=== PATIENT | female | born 1980 ===

== ENCOUNTER 2018-07-30 13:53 | Emergency (ER) | payer BC ==
[2018-07-30] MEDS ORDERED: Metoprolol Tartrate 25 MG Tab PO ONE (14:10)
--- NOTE | 2018-07-30 14:12 | EDM.PDOC ---
ED HPI GENERAL MEDICAL PROBLEM - General Chief Complaint: Cardiovascular Problem Stated Complaint: HIGH BLOOD PRESSURE Time Seen by Provider: 07/30/18 14:02 - History of Present Illness INITIAL COMMENTS - FREE TEXT/NARRATIVE: HISTORY AND PHYSICAL: History of present illness: Patient 38-year-old white female sensory concern of elevated blood pressure he states she's had some dizziness off and on she states is been a problem for some time and that down her maximum lisinopril and has been compliant she does have an appointment on Wednesday is no chest pain shortness of breath or other concern. Blood pressure on arrival here is 191/100 Review of systems: As per history of present illness and below otherwise all systems reviewed and negative. Past medical history: As per history of present illness and as reviewed below otherwise noncontributory. Surgical history: As per history of present illness and as reviewed below otherwise noncontributory. Social history: No reported history of drug or alcohol abuse. Family history: As per history of present illness and as reviewed below otherwise noncontributory. Physical exam: HEENT: Atraumatic, normocephalic, pupils reactive, negative for conjunctival pallor or scleral icterus, mucous membranes moist, throat clear, neck supple, nontender, trachea midline. Lungs: Clear to auscultation, breath sounds equal bilaterally, chest nontender. Heart: S1S2, regular, negative for clicks, rubs, or JVD. Abdomen: Soft, nondistended, nontender. Negative for masses or hepatosplenomegaly. Negative for costovertebral tenderness. Pelvis: Stable nontender. Genitourinary: Deferred. Rectal: Deferred. Extremities: Atraumatic, negative for cords or calf pain. Neurovascular unremarkable. Neuro: Awake, alert, oriented. Cranial nerves II through XII unremarkable. Cerebellum unremarkable. Motor and sensory unremarkable throughout. Exam nonfocal. Diagnostics: CBC CMP chest x-ray EKG Therapeutics: Metoprolol 25 mg by mouth Impression: #1 hypertension #2 medical screening exam Definitive disposition and diagnosis as appropriate pending reevaluation and review of above. - Related Data Allergies Allergy/AdvReac Type Severity Reaction Status Date / Time oxycodone [From Percocet] Allergy Hives Verified 07/30/18 14:06 Home Meds: Home Meds Lisinopril 40 mg PO DAILY 07/30/18 [History] Sertraline HCl 50 mg PO DAILY 07/30/18 [History] ED ROS GENERAL - Review of Systems Review Of Systems: ROS reveals no pertinent complaints other than HPI. ED EXAM, GENERAL - Physical Exam Exam: See Below (See dictation) Course - Vital Signs Last Recorded V/S: Last Vital Signs Temp 36.7 C 07/30/18 14:04 Pulse 76 07/30/18 14:14 Resp 18 07/30/18 14:04 BP 199/109 H 07/30/18 14:14 Pulse Ox 99 07/30/18 14:04 - Orders/Labs/Meds Orders: Active Orders 24 hr Category Date Time Status EKG Documentation Completion [RC] STAT Care 07/30/18 14:07 Active Labs: Laboratory Tests 07/30/18 07/30/18 Range/Units 14:20 14:20 WBC 10.67 (4.0-11.0) K/uL RBC 4.59 (4.30-5.90) M/uL Hgb 11.3 L (12.0-16.0) g/dL Hct 35.7 L (36.0-46.0) % MCV 77.8 L (80.0-98.0) fL MCH 24.6 L (27.0-32.0) pg MCHC 31.7 (31.0-37.0) g/dL RDW Std Deviation 45.6 (28.0-62.0) fl RDW Coeff of Mela 16 H (11.0-15.0) % Plt Count 337 (150-400) K/uL MPV 10.40 (7.40-12.00) fL Neut % (Auto) 69.6 (48.0-80.0) % Lymph % (Auto) 23.1 (16.0-40.0) % Mobile % (Auto) 5.0 (0.0-15.0) % Eos % (Auto) 2.1 (0.0-7.0) % Baso % (Auto) 0.2 (0.0-1.5) % Neut # (Auto) 7.4 H (1.4-5.7) K/uL Lymph # (Auto) 2.5 H (0.6-2.4) K/uL Mobile # (Auto) 0.5 (0.0-0.8) K/uL Eos # (Auto) 0.2 (0.0-0.7) K/uL Baso # (Auto) 0.0 (0.0-0.1) K/uL Nucleated RBC % 0.0 /100WBC Nucleated RBCs # 0 K/uL Sodium 138 (136-145) mmol/L Potassium 3.7 (3.5-5.1) mmol/L Chloride 106 (98-107) mmol/L Carbon Dioxide 23.6 (21.0-32.0) mmol/L BUN 11 (7.0-18.0) mg/dL Creatinine 0.8 (0.6-1.0) mg/dL Est Cr Clr Drug Dosing 73.36 mL/min Estimated GFR (MDRD) > 60.0 ml/min Glucose 100 (74-106) mg/dL Calcium 9.1 (8.5-10.1) mg/dL Total Bilirubin 0.1 L (0.2-1.0) mg/dL AST 10 L (15-37) IU/L ALT 18 (14-63) IU/L Alkaline Phosphatase 110 (46-116) U/L Total Protein 7.2 (6.4-8.2) g/dL Albumin 3.1 L (3.4-5.0) g/dL Globulin 4.1 H (2.6-4.0) g/dL Albumin/Globulin Ratio 0.8 L (0.9-1.6) Meds: Medications Discontinued Medications Generic Name Dose Route Start Last Admin Trade Name Freq PRN Reason Stop Dose Admin Metoprolol Tartrate 25 mg 07/30/18 14:10 07/30/18 14:14 Lopressor PO 07/30/18 14:11 25 mg ONETIME ONE Administration Departure - Departure Time of Disposition: 15:45 Disposition: Home, Self-Care 01 Condition: Good Clinical Impression: Hypertension, Encounter for medical screening examination Forms: ED Department Discharge Additional Instructions: The following information is given to patients seen in the emergency department who are being discharged to home. This information is to outline your options for follow-up care. We provide all patients seen in our emergency department with a follow-up referral. The need for follow-up, as well as the timing and circumstances, are variable depending upon the specifics of your emergency department visit. If you don't have a primary care physician on staff, we will provide you with a referral. We always advise you to contact your personal physician following an emergency department visit to inform them of the circumstance of the visit and for follow-up with them and/or the need for any referrals to a consulting specialist. The emergency department will also refer you to a specialist when appropriate. This referral assures that you have the opportunity for followup care with a specialist. All of these measure are taken in an effort to provide you with optimal care, which includes your followup. Under all circumstances we always encourage you to contact your private physician who remains a resource for coordinating your care. When calling for followup care, please make the office aware that this follow-up is from your recent emergency room visit. If for any reason you are refused follow-up, please contact the [facility] emergency department at and asked to speak to the emergency department charge nurse. Continue current medications as prescribed Lopressor as directed daily scheduled appointment this week and return as needed as discussed - My Orders Last 24 Hours: My Active Orders 07/30/18 14:07 EKG Documentation Completion [RC] STAT - Assessment/Plan Last 24 Hours: My Active Orders 07/30/18 14:07 EKG Documentation Completion [RC] STAT
[2018-07-30 14:47] LABS: CHLORIDE,CL 106 mmol/L (98-107); SODIUM,NA 138 mmol/L (136-145)
--- NOTE | 2018-07-30 15:01 | CR ---
Indication: Dizziness and headache for the past 2 days. Technique: A single AP portable view of the chest was obtained. Comparison: None Findings: Heart is normal in size. The lungs are clear. No infiltrate, pleural effusion, or pneumothorax is identified. Impression: No acute cardiopulmonary process. Dictated by Raven Aguero MD @ Jul 30 2018 2:59PM Signed by Dr. Raven Aguero @ Jul 30 2018 3:00PM
== END 2018-07-30 16:03 | disposition home or self-care (01) ==
LOC: MW.ED 13:53
DX: I10 Essential (primary) hypertension (principal); Z88.8 Allergy status to other drugs, medicaments and biological substances
CPT/HCPCS: 36415; 71045; 80053; 85025; 93005; 99284; A9270

== ENCOUNTER 2019-04-06 08:38 | Emergency (ER) | payer BC ==
--- NOTE | 2019-04-06 08:43 | EDM.PDOC ---
ED HPI GENERAL MEDICAL PROBLEM - General Chief Complaint: Abdominal Pain Stated Complaint: POSSIBLE HERNIA Time Seen by Provider: 04/06/19 08:42 Source of Information: Reports: Patient History Limitations: Reports: No Limitations - History of Present Illness INITIAL COMMENTS - FREE TEXT/NARRATIVE: History of present illness: []Patient was doing sit-ups 6 days ago and felt sudden pain in her left lower quadrant. She has had an umbilical hernia in the past and feels that it is related to this in a different area. She denies any fevers, chills, nausea, vomiting or diarrhea. Review of systems: As per history of present illness and below otherwise all systems reviewed and negative. Past medical history: As per history of present illness and as reviewed below otherwise noncontributory. Surgical history: As per history of present illness and as reviewed below otherwise noncontributory. Social history: No reported history of drug or alcohol abuse. Family history: As per history of present illness and as reviewed below otherwise noncontributory. Physical exam: General: Well developed, well nourished in NAD HEENT: Atraumatic, normocephalic, pupils reactive, negative for conjunctival pallor or scleral icterus, mucous membranes moist, throat clear, neck supple, nontender, trachea midline. Lungs: Clear to auscultation, breath sounds equal bilaterally, chest nontender. Heart: S1S2, regular, negative for clicks, rubs, or JVD. Abdomen: NABS, Soft, nondistended, tender in left lower quadrant with a palpable mass in the abdominal wall no rebound or guarding. Negative for masses or hepatosplenomegaly. Negative for costovertebral tenderness. Pelvis: Stable nontender. Genitourinary: Deferred. Rectal: Deferred. Extremities: Atraumatic, negative for cords or calf pain. Neurovascular unremarkable. Neuro: Awake, alert, oriented. Cranial nerves II through XII unremarkable. Cerebellum unremarkable. Motor and sensory unremarkable throughout. Exam nonfocal. Skin:warm and dry Diagnostics: CBC, chemistry, lipase, UA on the CT abdomen pelvis Therapeutics: IV hydration, Toradol ED Course: Stable Impression: Left abdominal wall inferior rectus hematoma Prescriptions: None Plan: Ice, heat, Tylenol for pain, follow-up with primary care as needed Definitive disposition and diagnosis as appropriate pending reevaluation and review of above. left abdomen Pain Score (Numeric/FACES): 8 - Related Data Allergies Allergy/AdvReac Type Severity Reaction Status Date / Time oxycodone [From Percocet] Allergy Hives Verified 04/06/19 08:43 Home Meds: Home Meds Labetalol [Normodyne] 200 mg PO DAILY 04/06/19 [History] Past Medical History Cardiovascular History: Reports: Hypertension Psychiatric History: Reports: Depression - Past Surgical History GI Surgical History: Reports: Appendectomy, Cholecystectomy Female Surgical History: Reports: Section Social & Family History - Family History Family Medical History: Noncontributory - Caffeine Use Caffeine Use: Reports: Tea Other Caffeine Use: one time per week glass of tea ED ROS GENERAL - Review of Systems Review Of Systems: See Below ED EXAM, GI/ABD - Physical Exam Exam: See Below Course - Vital Signs Last Recorded V/S: Last Vital Signs Temp 97.3 F 04/06/19 08:41 Pulse 77 04/06/19 08:41 Resp 18 04/06/19 08:41 BP 150/105 H 04/06/19 08:41 Pulse Ox 100 04/06/19 08:41 - Orders/Labs/Meds Orders: Active Orders 24 hr Category Date Time Status COMPREHENSIVE METABOLIC PN,CMP [CHEM] Stat Lab 04/06/19 09:06 Received LIPASE [CHEM] Stat Lab 04/06/19 09:06 Received UA W/MICROSCOPIC [URIN] Stat Lab 04/06/19 08:48 Ordered Sodium Chloride 0.9% [Saline Flush] Med 04/06/19 08:49 Active 10 ml FLUSH ASDIRECTED PRN Sodium Chloride 0.9% [Saline Flush] Med 04/06/19 08:49 Active 2.5 ml FLUSH ASDIRECTED PRN Saline Lock Insert [OM.PC] Stat Oth 04/06/19 08:48 Ordered Medication Orders Sodium Chloride (Saline Flush) 10 ml FLUSH ASDIRECTED PRN PRN Reason: Keep Vein Open Sodium Chloride (Saline Flush) 2.5 ml FLUSH ASDIRECTED PRN PRN Reason: Keep Vein Open Labs: Laboratory Tests 04/06/19 04/06/19 Range/Units 09:06 09:06 WBC 10.76 (4.0-11.0) K/uL RBC 4.84 (4.30-5.90) M/uL Hgb 11.5 L (12.0-16.0) g/dL Hct 36.5 (36.0-46.0) % MCV 75.4 L (80.0-98.0) fL MCH 23.8 L (27.0-32.0) pg MCHC 31.5 (31.0-37.0) g/dL RDW Std Deviation 45.6 (28.0-62.0) fl RDW Coeff of Mela 17 H (11.0-15.0) % Plt Count 335 (150-400) K/uL MPV 11.10 (7.40-12.00) fL Neut % (Auto) 72.9 (48.0-80.0) % Lymph % (Auto) 18.5 (16.0-40.0) % Stanton % (Auto) 5.8 (0.0-15.0) % Eos % (Auto) 2.5 (0.0-7.0) % Baso % (Auto) 0.3 (0.0-1.5) % Neut # (Auto) 7.9 H (1.4-5.7) K/uL Lymph # (Auto) 2.0 (0.6-2.4) K/uL Stanton # (Auto) 0.6 (0.0-0.8) K/uL Eos # (Auto) 0.3 (0.0-0.7) K/uL Baso # (Auto) 0.0 (0.0-0.1) K/uL Nucleated RBC % 0.0 /100WBC Nucleated RBCs # 0 K/uL Lactate 0.6 (0.20-2.00) mmol/L Meds: Medications Generic Name Dose Route Start Last Admin Trade Name Freq PRN Reason Stop Dose Admin Sodium Chloride 10 ml 04/06/19 08:49 Saline Flush FLUSH ASDIRECTED PRN Keep Vein Open Sodium Chloride 2.5 ml 04/06/19 08:49 Saline Flush FLUSH ASDIRECTED PRN Keep Vein Open Discontinued Medications Generic Name Dose Route Start Last Admin Trade Name Freq PRN Reason Stop Dose Admin Sodium Chloride 1,000 mls @ 999 mls/hr 04/06/19 08:49 04/06/19 09:04 Normal Saline IV 04/06/19 09:49 999 mls/hr .Bolus ONE Administration Ketorolac Tromethamine 30 mg 04/06/19 08:49 04/06/19 09:04 Toradol IVPUSH 04/06/19 08:50 30 mg ONETIME ONE Administration Departure - Departure Time of Disposition: 10:22 Disposition: Home, Self-Care 01 Condition: Good Clinical Impression: Hematoma of rectus sheath Qualifiers: Encounter type: initial encounter Qualified Code(s): S30.1XXA - Contusion of abdominal wall, initial encounter - Discharge Information *PRESCRIPTION DRUG MONITORING PROGRAM REVIEWED*: No *COPY OF PRESCRIPTION DRUG MONITORING REPORT IN PATIENT CHRISTY: No Referrals: Beverly Morris MD [Primary Care Provider] - Forms: ED Department Discharge Additional Instructions: The following information is given to patients seen in the emergency department who are being discharged to home. This information is to outline your options for follow-up care. We provide all patients seen in our emergency department with a follow-up referral. The need for follow-up, as well as the timing and circumstances, are variable depending upon the specifics of your emergency department visit. If you don't have a primary care physician on staff, we will provide you with a referral. We always advise you to contact your personal physician following an emergency department visit to inform them of the circumstance of the visit and for follow-up with them and/or the need for any referrals to a consulting specialist. The emergency department will also refer you to a specialist when appropriate. This referral assures that you have the opportunity for follow-up care with a specialist. All of these measure are taken in an effort to provide you with optimal care, which includes your follow-up. Under all circumstances we always encourage you to contact your private physician who remains a resource for coordinating your care. When calling for follow-up care, please make the office aware that this follow-up is from your recent emergency room visit. If for any reason you are refused follow-up, please contact the [facility] Emergency Department at and asked to speak to the emergency department charge nurse. Take meds as directed, follow up with your primary care physician, return to ER if symptoms worsen or change. [facility] [address] [place] [id number] - My Orders Last 24 Hours: My Active Orders 04/06/19 08:48 UA W/MICROSCOPIC [URIN] Stat Saline Lock Insert [OM.PC] Stat 04/06/19 08:49 Sodium Chloride 0.9% [Saline Flush] 10 ml FLUSH ASDIRECTED PRN Sodium Chloride 0.9% [Saline Flush] 2.5 ml FLUSH ASDIRECTED PRN 04/06/19 09:06 COMPREHENSIVE METABOLIC PN,CMP [CHEM] Stat LIPASE [CHEM] Stat - Assessment/Plan Last 24 Hours: My Active Orders 04/06/19 08:48 UA W/MICROSCOPIC [URIN] Stat Saline Lock Insert [OM.PC] Stat 04/06/19 08:49 Sodium Chloride 0.9% [Saline Flush] 10 ml FLUSH ASDIRECTED PRN Sodium Chloride 0.9% [Saline Flush] 2.5 ml FLUSH ASDIRECTED PRN 04/06/19 09:06 COMPREHENSIVE METABOLIC PN,CMP [CHEM] Stat LIPASE [CHEM] Stat
[2019-04-06] MEDS ORDERED: Sodium Chloride 0.9% 2.5 ML Syringe FLUSH PRN (08:49)
[2019-04-06] MEDS ORDERED: Ketorolac 30 MG/ML SDV IVPUSH ONE (08:49)
[2019-04-06] MEDS ORDERED: Sodium Chloride 0.9% 1,000 ML IV ONE (08:49)
[2019-04-06] MEDS ORDERED: Sodium Chloride 0.9% 10 ML Syringe FLUSH PRN (08:49)
[2019-04-06 10:05] LABS: BLOOD UREA NITROGEN,BUN 15 mg/dL (7.0-18.0); CHLORIDE,CL 104 mmol/L (98-107); GLUCOSE RANDOM 97 mg/dL (74-106); LIPASE 100 U/L (73-393); POTASSIUM,K 3.8 mmol/L (3.5-5.1); SODIUM,NA 139 mmol/L (136-145)
--- NOTE | 2019-04-06 10:15 | CT ---
INDICATION : Left lower abdominal wall pain after performing a sit up. TECHNIQUE : CT Scan of the abdomen and pelvis without contrast. COMPARISON : No comparison FINDINGS: Abdominal wall: LEFT inferior rectus sheath rectus muscle enlargement and increased attenuation measuring 3.5 x 5.2 x 6.0 cm. This begins about centimeters below the level of the umbilicus. Liver and gallbladder: No mass. Very contracted structure with some small calcifications near the gallbladder fossa. This could be an extremely contracted gallbladder with calcified stones. If the patient has had gallbladder surgery it could be small stones within the cystic duct remanent after gallbladder surgery. No biliary dilatation. Miscellaneous abdomen: Spleen, adrenal glands, pancreas kidneys unremarkable. No adenopathy. GI tract normal caliber. Scattered diverticula of the sigmoid. Appendectomy. Pelvis: Uterus is normal size. Bladder unremarkable with no free fluid or adenopathy. Lung bases and skeletal: Unremarkable. IMPRESSION: Localized rectus sheath hematoma of the LEFT inferior rectus abdominus with measurements given above. Please note that all CT scans at this facility use dose modulation, iterative reconstruction, and/or weight-based dosing when appropriate to reduce radiation dose to as low as reasonably achievable. Dictated by Korey Morales MD @ Apr 06 2019 10:12AM Signed by Dr. Korey Morales @ Apr 06 2019 10:12AM
== END 2019-04-06 10:35 | disposition home or self-care (01) ==
LOC: MW.ED 08:38
DX: M79.81 Nontraumatic hematoma of soft tissue (principal); I10 Essential (primary) hypertension; Z88.6 Allergy status to analgesic agent; Z79.899 Other long term (current) drug therapy
CPT/HCPCS: 36415; 74176; 80053; 83605; 83690; 85025; 96361; 96374; 99284; J1885; J7040

== ENCOUNTER 2019-07-04 10:38 | Emergency (ER) | payer BC ==
--- NOTE | 2019-07-04 11:25 | EDM.PDOC ---
ED HPI GENERAL MEDICAL PROBLEM - General Chief Complaint: ENT Problem Stated Complaint: NECK PAIN Time Seen by Provider: 07/04/19 11:11 Throat Pain Score (Numeric/FACES): 7 - Related Data Allergies Allergy/AdvReac Type Severity Reaction Status Date / Time oxycodone [From Percocet] Allergy Hives Verified 07/04/19 10:59 Home Meds: Home Meds Labetalol [Normodyne] 200 mg PO DAILY 04/06/19 [History] Amoxicillin 500 mg PO TID 10 Days #30 tab 07/04/19 [Rx] Past Medical History HEENT History: Reports: None Cardiovascular History: Reports: Hypertension Respiratory History: Reports: None Gastrointestinal History: Reports: None Genitourinary History: Reports: None 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 Musculoskeletal History: Reports: None Neurological History: Reports: None Psychiatric History: Reports: Depression Endocrine/Metabolic History: Reports: None Hematologic History: Reports: None Immunologic History: Reports: None Oncologic (Cancer) History: Reports: None Dermatologic History: Reports: None - Infectious Disease History Infectious Disease History: Reports: None - Past Surgical History Head Surgeries/Procedures: Reports: None HEENT Surgical History: Reports: None Respiratory Surgical History: Reports: None GI Surgical History: Reports: Appendectomy, Cholecystectomy Female Surgical History: Reports: Section Endocrine Surgical History: Reports: None Neurological Surgical History: Reports: None Musculoskeletal Surgical History: Reports: None Oncologic Surgical History: Reports: None Dermatological Surgical History: Reports: None Social & Family History - Family History Family Medical History: Noncontributory - Tobacco Use Smoking Status *Q: Never Smoker Second Hand Smoke Exposure: No - Caffeine Use Caffeine Use: Reports: None Other Caffeine Use: one time per week glass of tea - Recreational Drug Use Recreational Drug Use: No Course - Vital Signs Last Recorded V/S: Last Vital Signs Temp 98.1 F 07/04/19 10:59 Pulse 98 07/04/19 10:59 Resp 16 07/04/19 10:59 BP 174/114 H 07/04/19 10:59 Pulse Ox 98 07/04/19 10:59 - Orders/Labs/Meds Orders: Active Orders 24 hr Category Date Time Status INFLUENZA A+B AG SCREEN [RM] Stat Lab 07/04/19 11:04 Ordered STREP SCRN A RAPID W CULT CONF [RM] Stat Lab 07/04/19 11:04 Ordered Departure - Departure Time of Disposition: 11:12 Disposition: Home, Self-Care 01 Condition: Good Clinical Impression: Acute tonsillitis - Discharge Information Prescriptions: Amoxicillin 500 mg PO TID 10 Days #30 tab Referrals: Beverly Morris MD [Primary Care Provider] - Additional Instructions: The following information is given to patients seen in the emergency department who are being discharged to home. This information is to outline your options for follow-up care. We provide all patients seen in our emergency department with a follow-up referral. The need for follow-up, as well as the timing and circumstances, are variable depending upon the specifics of your emergency department visit. If you don't have a primary care physician on staff, we will provide you with a referral. We always advise you to contact your personal physician following an emergency department visit to inform them of the circumstance of the visit and for follow-up with them and/or the need for any referrals to a consulting specialist. The emergency department will also refer you to a specialist when appropriate. This referral assures that you have the opportunity for follow-up care with a specialist. All of these measure are taken in an effort to provide you with optimal care, which includes your follow-up. Under all circumstances we always encourage you to contact your private physician who remains a resource for coordinating your care. When calling for follow-up care, please make the office aware that this follow-up is from your recent emergency room visit. If for any reason you are refused follow-up, please contact the [facility] Emergency Department at and asked to speak to the emergency department charge nurse. [facility] [address] [place] [address] [id number] [address] [address] Take antibiotic as instructed Alternate tylenol and motrin as needed Follow up with primary care provider return to ED as needed as discussed Sepsis Event Note - Evaluation Sepsis Screening Result: No Definite Risk - Focused Exam Vital Signs: Vital Signs Temp Pulse Resp BP Pulse Ox 07/04/19 10:59 98.1 F 98 16 174/114 H 98 Date Exam was Performed: 07/04/19 Time Exam was Performed: 11:11 - My Orders Last 24 Hours: My Active Orders 07/04/19 11:04 INFLUENZA A+B AG SCREEN [RM] Stat STREP SCRN A RAPID W CULT CONF [] Stat - Assessment/Plan Last 24 Hours: My Active Orders 07/04/19 11:04 INFLUENZA A+B AG SCREEN [] Stat STREP SCRN A RAPID W CULT CONF [] Stat
--- NOTE | 2019-07-18 11:31 | EDM.PDOC ---
ED HPI GENERAL MEDICAL PROBLEM - General Chief Complaint: ENT Problem Stated Complaint: NECK PAIN Time Seen by Provider: 07/04/19 11:11 Source of Information: Reports: Patient History Limitations: Reports: No Limitations - History of Present Illness INITIAL COMMENTS - FREE TEXT/NARRATIVE: HISTORY AND PHYSICAL: History of present illness: Patient is a 39-year-old female presents the ED with complaint of sore throat and cough for the past couple of weeks. She denies fevers, chills, nausea, vomiting, abdominal pain, trismus, difficulty swallowing or breathing. She has taking Tylenol ibuprofen [id number] with some relief of symptoms. She has no other complaints at this time. Denies significant past medical history. Review of systems: As per history of present illness and below otherwise all systems reviewed and negative. Past medical history: As per history of present illness and as reviewed below otherwise noncontributory. Surgical history: As per history of present illness and as reviewed below otherwise noncontributory. Social history: No reported history of drug or alcohol abuse. Family history: As per history of present illness and as reviewed below otherwise noncontributory. Physical exam: General: Patient sitting comfortably in no acute distress and nontoxic appearing HEENT: OP is erythematous without exudate. Atraumatic, normocephalic, pupils reactive, negative for conjunctival pallor or scleral icterus, mucous membranes moist, throat clear, neck supple, nontender, trachea midline. No meningeal signs. Lungs: Clear to auscultation, breath sounds equal bilaterally, chest nontender. Heart: S1S2, regular, negative for clicks, rubs, or overt murmur. Abdomen: Soft, nondistended, nontender. Negative for masses or hepatosplenomegaly. Negative for costovertebral tenderness. No rigidity, rebound , guarding. Pelvis: Stable nontender. Genitourinary: Deferred. Rectal: Deferred. Extremities: Atraumatic, negative for cords or calf pain. Neurovascular unremarkable. Neuro: Awake, alert, oriented. Cranial nerves II through XII unremarkable. Cerebellum unremarkable. Motor and sensory unremarkable throughout. Exam nonfocal. Notes: Diagnostics: Rapid strep, influenza Therapeutics: none Prescriptions: Amoxicillin Impression: Strep pharyngitis Plan: Take antibiotic as instructed Alternate tylenol and motrin as needed Follow up with primary care provider Return to ED as needed as discussed Definitive disposition and diagnosis as appropriate pending reevaluation and review of above. Throat Pain Score (Numeric/FACES): 7 - Related Data Allergies Allergy/AdvReac Type Severity Reaction Status Date / Time oxycodone [From Percocet] Allergy Hives Verified 07/04/19 10:59 Home Meds: Home Meds Labetalol [Normodyne] 200 mg PO DAILY 04/06/19 [History] Amoxicillin 500 mg PO TID 10 Days #30 tab 07/04/19 [Rx] Past Medical History HEENT History: Reports: None Cardiovascular History: Reports: Hypertension Respiratory History: Reports: None Gastrointestinal History: Reports: None Genitourinary History: Reports: None [employer] History: Reports: None Musculoskeletal History: Reports: None Neurological History: Reports: None Psychiatric History: Reports: Depression Endocrine/Metabolic History: Reports: None Hematologic History: Reports: None Immunologic History: Reports: None Oncologic (Cancer) History: Reports: None Dermatologic History: Reports: None - Infectious Disease History Infectious Disease History: Reports: None - Past Surgical History Head Surgeries/Procedures: Reports: None HEENT Surgical History: Reports: None Respiratory Surgical History: Reports: None GI Surgical History: Reports: Appendectomy, Cholecystectomy Female Surgical History: Reports: Section Endocrine Surgical History: Reports: None Neurological Surgical History: Reports: None Musculoskeletal Surgical History: Reports: None Oncologic Surgical History: Reports: None Dermatological Surgical History: Reports: None Social & Family History - Family History Family Medical History: Noncontributory - Tobacco Use Smoking Status *Q: Never Smoker Second Hand Smoke Exposure: No - Caffeine Use Caffeine Use: Reports: None Other Caffeine Use: one time per week glass of tea - Recreational Drug Use Recreational Drug Use: No ED ROS ENT - Review of Systems Review Of Systems: Comprehensive ROS is negative, except as noted in HPI. ED EXAM, ENT - Physical Exam Exam: See Below (see dictation) Course - Vital Signs Last Recorded V/S: Last Vital Signs Temp 98.1 F 07/04/19 10:59 Pulse 88 07/04/19 11:38 Resp 16 07/04/19 11:38 BP 163/101 H 07/04/19 11:38 Pulse Ox 96 07/04/19 11:38 Departure - Departure Time of Disposition: 11:31 Disposition: Home, Self-Care 01 Clinical Impression: Acute tonsillitis - Discharge Information Prescriptions: Amoxicillin 500 mg PO TID 10 Days #30 tab Instructions: Tonsillitis, [id number], Strep Throat, [id number] Referrals: Beverly Morris MD [Primary Care Provider] - Forms: ED Department Discharge Additional Instructions: The following information is given to patients seen in the emergency department who are being discharged to home. This information is to outline your options for follow-up care. We provide all patients seen in our emergency department with a follow-up referral. The need for follow-up, as well as the timing and circumstances, are variable depending upon the specifics of your emergency department visit. If you don't have a primary care physician on staff, we will provide you with a referral. We always advise you to contact your personal physician following an emergency department visit to inform them of the circumstance of the visit and for follow-up with them and/or the need for any referrals to a consulting specialist. The emergency department will also refer you to a specialist when appropriate. This referral assures that you have the opportunity for follow-up care with a specialist. All of these measure are taken in an effort to provide you with optimal care, which includes your follow-up. Under all circumstances we always encourage you to contact your private physician who remains a resource for coordinating your care. When calling for follow-up care, please make the office aware that this follow-up is from your recent emergency room visit. If for any reason you are refused follow-up, please contact the [facility] Emergency Department at and asked to speak to the emergency department charge nurse. [facility] [address] [place] [address] [id number] [address] [id number] Take antibiotic as instructed Alternate tylenol and motrin as needed Follow up with primary care provider return to ED as needed as discussed Sepsis Event Note - Evaluation Sepsis Screening Result: No Definite Risk
== END 2019-07-04 11:40 | disposition home or self-care (01) ==
LOC: MW.ED 10:38
DX: J03.90 Acute tonsillitis, unspecified (principal); I10 Essential (primary) hypertension; Z88.5 Allergy status to narcotic agent; Z79.899 Other long term (current) drug therapy
CPT/HCPCS: 87081; 87804; 87880-QW; 99283